=== PATIENT | female | born 1985 | race Caucasian/White ===

== ENCOUNTER 2016-11-11 20:53 | Emergency (ER) | payer OTHER ==
--- NOTE | ~2016-11-11 | CT4 ---
[facility] A Service of [facility] RADIOLOGY TEXT RESULTS PATIENT: RAIN LENNON LOCATION: [facility] : 89 UNIT #: [id number] AGE: [address]: Goldy Preston MD SEX: F ORDER DR: [id number] [facility] [address] [place], [place] [address] [id number] E MR#: [id number] #: [id number] NAME: RAIN LENNON : 1985 SEX: F STUDY DATE/TIME: 11/11/2016 21:35 UNIT: [facility] ROOM: STUDY DESCRIPTION: CT Abd and Pelv Wo Cont Attending Physician: Reinaldo Preston M.D. Ordering Physician: Franc Benitez M.D. Primary Care Physician: No Primary Care Physician MEDICAL IMAGING REPORT This report is preliminary unless electronic signature is present EXAM CT abdomen and pelvis, 11/11/16 HISTORY Right flank pain for 2 days. Difficulty urinating. Vomiting. Pain is 10/10. History of kidney stones. TECHNIQUE Axial noncontrast images were obtained through the abdomen and pelvis. Multiplanar reformats were obtained. No comparison. FINDINGS Abdomen: Lung bases are clear. The gallbladder is normal. There is moderate right hydronephrosis secondary to a 3 mm stone at the right ureterovesical junction. No other definite stones are seen. The unenhanced solid organs are otherwise normal. The unopacified GI tract is normal. There is no free fluid. Pelvis: No additional ureteral stones are seen. The bladder is relatively decompressed but within normal limits. Solid pelvic organs are normal. The GI tract including the appendix has a normal unopacified appearance. IMPRESSION 1. Moderate right hydronephrosis secondary to a 3 mm stone at the right ureterovesical junction. 2. No other definite stones are seen. 3. Normal unopacified GI tract including the appendix. Dictated by... Grant Rahman Jr., M.D. [facility] A Service of [facility] RADIOLOGY TEXT RESULTS PATIENT: RAIN LENNON LOCATION: [facility] : 89 UNIT #: [id number] AGE: [address]: Goldy Preston MD SEX: F ORDER DR: THIS IS AN ELECTRONICALLY VERIFIED REPORT Grant Rahman Jr., M.D. at 11/14/2016 7:29 AM Edgar TD: 11/12/2016 11:15 JOB #: [id number] MEDICAL IMAGING REPORT Page 1 of 1 COPY
[2016-11-11 21:02] LABS: BASOPHIL# 0.1 X10e3 (0-0.3); BASOPHIL% 0.7 % (0-2.5); EOSINOPHIL% 0.2 % (0.0-7.0); HEMATOCRIT 44.9 % (35.0-45.0); HEMOGLOBIN 15.3 gm/dL (12.0-16.0); LYMPHOCYTE# 1.7 X10e3 (1.0-3.5); LYMPHOCYTE% 12.8 % (17.0-45.0); MEAN CELL VOLUME 96.4 FL (83-96); MEAN CORPUSCULAR HEMOGLOBIN 32.8 PG (28-34); MEAN PLATELET VOLUME 8.7 FL (6.5-11.5); MONOCYTE# 0.7 X10e3 (0-1.0); MONOCYTE% 5.2 % (3.0-12.0); NEUTROPHIL# 10.6 X10e3 (1.5-7.1); NEUTROPHIL% 81.1 % (40-75); PLATELET COUNT 255 X10e3 (140-420); RED BLOOD COUNT 4.66 X10e (3.90-5.30); RED CELL DISTRIBUTION WIDTH 12.6 % (11.0-15.5)
[2016-11-11 21:03] LABS: DIFF IND NO
[2016-11-11 21:25] LABS: ALBUMIN SERUM 5.6 g/dL (3.5-5.0); BILIRUBIN, DIRECT 0.2 mg/dL (0.0-0.2); BILIRUBIN,INDIRECT 0.9 mg/dL (0.0-0.9); BILIRUBIN,TOTAL 1.1 mg/dL (0.2-2.0); CALCIUM SERUM 10.1 mg/dL (8.4-10.2); CREATININE SERUM 0.6 mg/dL (0.6-1.4); GLOM FILT RATE Estimated 123.2 mL/min (>60); POTASSIUM 4.1 mmol/L (3.5-5.1); PROTEIN TOTAL SERUM 8.5 g/dL (6.0-8.3)
== END 2016-11-11 22:10 | disposition home or self-care (01) ==
LOC: CED 20:53
PROVIDERS: Emergency Medicine
DX: N13.2 Hydronephrosis with renal and ureteral calculous obstruction (principal); F17.210 Nicotine dependence, cigarettes, uncomplicated; Z98.890 Other specified postprocedural states; Z87.442 Personal history of urinary calculi; Z91.040 Latex allergy status
CPT/HCPCS: 36415; 74176; 80048; 80076; 83690; 84703; 85025; 96361; 96374; 96375; 99284; J1170; J2405; J2550

== ENCOUNTER 2016-11-12 23:57 | Emergency (ER) | payer OTHER | END 2016-11-13 02:24 | disposition home or self-care (01) | LOC: CED 23:57 | DX: J02.9 Acute pharyngitis, unspecified (principal); Z87.442 Personal history of urinary calculi; F17.210 Nicotine dependence, cigarettes, uncomplicated; Z91.040 Latex allergy status; Z79.899 Other long term (current) drug therapy | CPT/HCPCS: 87651; 99283 ==